=== PATIENT | male | born 1995 | race Caucasian/White ===

== ENCOUNTER 2017-02-24 13:24 | Emergency (ER) | payer SELFPAY ==
[~2017-02-24] VITALS: Ht 167.6 cm; Wt 63.0 kg
[2017-02-24 13:44] VITALS: BP 101/65
== END 2017-02-24 16:18 | disposition home or self-care (01) ==
LOC: EDSEX 13:24 → ER 16:04
DX: S62.394A Other fracture of fourth metacarpal bone, right hand, initial encounter for closed fracture (principal); W22.01XA Walked into wall, initial encounter; Y92.018 Other place in single-family (private) house as the place of occurrence of the external cause
CPT/HCPCS: 73100; 73120; 99284